=== PATIENT | male | born 1995 ===

== ENCOUNTER → 2019-12-11 | Outpatient (CLI) | payer SELFPAY ==
[2019-12-11 07:44] LABS: SPERM MORPHOLOGY SENT TO REFERENC LAB
[2019-12-11 09:09] LABS: SPERM CONCENTRATION 31.7 X10^6/mL (>12.0); TOTAL SPERM COUNT 85.6 X10^6 (>33.0)
[2019-12-11 09:10] LABS: SPERM PROGRESSION 1
== END ==
LOC: LAB 07:41
DX: N46.9 Male infertility, unspecified (principal)
CPT/HCPCS: 36415; 89320